=== PATIENT | male | born 1945 ===

== ENCOUNTER 2022-04-01 06:00 | Day surgery (SDC) | payer OTHER | END 2022-04-01 12:25 | disposition home or self-care (01) | LOC: AMB-ENDOS 06:00 | PROVIDERS: ATTEND Colon & Rectal Surgery | DX: K63.5 Polyp of colon (principal); Z88.5 Allergy status to narcotic agent; Z20.822 Contact with and (suspected) exposure to COVID-19 ==

== ENCOUNTER 2022-06-17 05:10 | Day surgery (SDC) | payer OTHER | END 2022-06-17 12:15 | disposition home or self-care (01) | LOC: AMB-ENDOS 05:10 → EDSTATUS 11:15 → AMB-ENDOS 11:15 → SURH 11:15 → AMB-ENDOS 12:15 | PROVIDERS: ATTEND Colon & Rectal Surgery | DX: D12.2 Benign neoplasm of ascending colon (principal); Z88.6 Allergy status to analgesic agent ==

== ENCOUNTER 2022-08-26 06:25 | Day surgery (SDC) | payer OTHER | END 2022-08-26 13:40 | disposition home or self-care (01) | LOC: AMB-ENDOS 06:25 | PROVIDERS: ATTEND Colon & Rectal Surgery | DX: D12.3 Benign neoplasm of transverse colon (principal); D12.1 Benign neoplasm of appendix; Z88.6 Allergy status to analgesic agent; Z20.822 Contact with and (suspected) exposure to COVID-19 ==

== ENCOUNTER → 2023-02-17 | Day surgery (SDC) | payer OTHER | END | disposition home or self-care (01) | LOC: ADM 02-12 14:30 → AMB-ENDOS 05:37 | PROVIDERS: ATTEND Colon & Rectal Surgery | DX: D12.3 Benign neoplasm of transverse colon (principal); D12.4 Benign neoplasm of descending colon; D12.5 Benign neoplasm of sigmoid colon; K57.30 Diverticulosis of large intestine without perforation or abscess without bleeding; K64.8 Other hemorrhoids; Z20.822 Contact with and (suspected) exposure to COVID-19; Z88.6 Allergy status to analgesic agent ==